=== PATIENT | female | born 2000 | race Caucasian/White ===

== ENCOUNTER 2020-04-27 17:59 | Emergency (ER) | payer BC, OTHER ==
[2020-04-27 20:39] VITALS: BP 131/63
--- NOTE | 2020-04-27 20:39 | NUR ---
PT BROUGHT BACK TO TRAIGE FOR VITALS.
--- NOTE | 2020-04-27 20:48 | NUR ---
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
[2020-04-27] MEDS ORDERED: NEOSPORIN OINT. PKT 1 PACKET ONE (21:09)
== END 2020-04-27 22:21 | disposition home or self-care (01) ==
LOC: ED 18:50
DX: S61.210A Laceration without foreign body of right index finger without damage to nail, initial encounter (principal); S60.410A Abrasion of right index finger, initial encounter; S60.412A Abrasion of right middle finger, initial encounter; S90.811A Abrasion, right foot, initial encounter; X58.XXXA Exposure to other specified factors, initial encounter; Y93.89 Activity, other specified; Y92.009 Unspecified place in unspecified non-institutional (private) residence as the place of occurrence of the external cause; Y99.8 Other external cause status
CPT/HCPCS: 99284